=== PATIENT | female | born 1995 | race Caucasian/White ===

== ENCOUNTER → 2021-08-15 | Outpatient (CLI) | payer BC | LOC: KOH-I 11:28 | DX: S99.921A Unspecified injury of right foot, initial encounter (principal) | CPT/HCPCS: 73630 ==

== ENCOUNTER 2022-01-03 20:48 | Emergency (ER) | payer BC | END 2022-01-03 21:30 | disposition left against medical advice (07) | LOC: ER1 20:48 | DX: Z53.21 Procedure and treatment not carried out due to patient leaving prior to being seen by health care provider (principal) ==